=== PATIENT | female | born 1985 | race Two or more races ===

== ENCOUNTER 2024-11-20 17:26 | Emergency (ER) | payer SELFPAY ==
[~2024-11-20] VITALS: Ht 162.6 cm; Wt 84.0 kg
[2024-11-20] MEDS ORDERED: DOXYCYCLINE HYC20 MG PO (18:32)
[2024-11-20] MEDS ORDERED: VENTOLIN HFA18 GM INH (18:32)
[2024-11-20] MEDS ORDERED: PREDNISONE20 MG PO (18:32)
[2024-11-20 18:38] VITALS: PULSE 95; RESP 18; TEMP 99.7; O2SAT 97
== END 2024-11-20 18:38 | disposition home or self-care (01) ==
LOC: FSED 17:55
DX: R05.9 Cough, unspecified (principal); J06.9 Acute upper respiratory infection, unspecified; B09 Unspecified viral infection characterized by skin and mucous membrane lesions; R30.0 Dysuria; R51.9 Headache, unspecified; R53.1 Weakness; R53.83 Other fatigue; Z11.52 Encounter for screening for COVID-19
CPT/HCPCS: 0223U; 81003; 83518; 99283